=== PATIENT | male | born 1965 | race Caucasian/White ===

== ENCOUNTER 2018-04-27 06:36 | Day surgery (SDC) | payer OTHER ==
[~2018-04-27] VITALS: Ht 154.9 cm; Wt 63.5 kg
[2018-04-27] MEDS ORDERED: LIDOCAINE 2% 100 MG/5 ML UJET TP ONE (07:48)
[2018-04-27] MEDS ORDERED: KETOROLAC 30 MG/ML VIAL ONE (07:48)
== END 2018-04-27 09:16 | disposition home or self-care (01) ==
LOC: MDS 06:36 → MMU 06:37 → MDS 09:16
PROVIDERS: ATTEND Internal Medicine Gastroenterology
DX: Z12.11 Encounter for screening for malignant neoplasm of colon (principal); Z72.89 Other problems related to lifestyle
CPT/HCPCS: 45378; J1885